=== PATIENT | female | born 1985 | race Caucasian/White ===

== ENCOUNTER → 2016-07-30 | Outpatient (CLI) | payer OTHER ==
[~2016-07-30] MED LIST: ALBU0.5N2 NEB; AMT50 PO; CGN1 PO; CHLO100T8 PO; CIPR1TAB11 PO; CLON1TAB3 PO; CYM/30 PO; DICY20TA35 PO; FLUO20CA35 PO; GLC/500 PO; HYDR25CA PO; METFORMIN PO; METH500T37 PO; NAPR375T3 PO; OMEP40CA PO; ONE A DAY WOMENS PO; PPTBS PO; QUET1TAB34 PO; QUET1TAB37 PO; QUET300T2 PO; TRAZ100T29 PO
[2016-07-30 17:30] LABS: BASO % 0.3 %; BASO ABS # 0.02 K/uL (0-0.2); COMPLETE YES; EOS % 1.2 %; HEMATOCRIT 39.6 % (37-47); IG% 0.2 %; LYMPH ABS # 2.33 K/uL (1.2-3.4); MEAN CELL VOLUME 89.8 fL (80-100); MEAN CORPUSCULAR HEMOGLOBIN 31.3 pg (25-34); MEAN CORPUSCULAR HGB CONC 34.8 g/dl (32-36); MEAN PLATELET VOLUME 9.9 fL (7.4-10.4); MONO % 2.9 %; NEUT % 55.4 %; PLATELET COUNT 202 K/uL (130-400); RED BLOOD COUNT 4.41 M/uL (4.2-5.4); WHITE BLOOD COUNT 5.82 K/uL (4.8-10.8)
[2016-07-30 17:53] LABS: AST/SGOT 13 U/L (15-37); BLOOD UREA NITROGEN 11 mg/dl (7-18); BUN/CREATININE RATIO 14.3 (10-20); CALCIUM 8.3 mg/dl (8.5-10.1); CARBON DIOXIDE 18 mmol/L (21-32); CHLORIDE 112 mmol/L (98-107); CHOLESTEROL 219 mg/dl (0-200); CREATININE 0.75 mg/dl (0.60-1.20); GLUCOSE 115 mg/dl (70-99); POTASSIUM 3.6 mmol/L (3.5-5.1); SODIUM 141 mmol/L (136-145); TRIGLYCERIDES 224 mg/dl (0-150); VERY LOW DENSITY LIPOPROT CALC 45 mg/dl
[2016-07-30 18:01] LABS: ALB/GLOB RATIO 1.1 (0.9-2); ALKALINE PHOSPHATASE 65 U/L (45-117); ALT/SGPT 26 U/L (12-78); CHOLESTEROL/HDL RATIO 5.6; HDL CHOLESTEROL 39 mg/dl; LDL CHOLESTEROL CALCULATED 135 mg/dl; RHEUMATOID FACTOR < 10.0 U/mL (0-15); THYROID STIMULATING HORMONE 0.865 uIu/ml (0.300-4.500)
[2016-07-30 19:44] LABS: LYME DISEASE AB IGG NEG (NEG); LYME DISEASE AB IGM NEG (NEG)
[2016-07-31 06:10] LABS: ESTIMATED AVERAGE GLUCOSE 105 mg/dl; HA1C FLAG Normal (Normal)
[2016-08-03 13:16] LABS: ANA TITER 1:40 TITER (<1:40)
== END | disposition home or self-care (01) ==
LOC: C.LABBFT 16:52
PROVIDERS: ATTEND Internal Medicine
DX: M25.50 Pain in unspecified joint (principal)

== ENCOUNTER → 2016-09-20 | Outpatient (CLI) | payer OTHER ==
[2016-09-25 05:07] LABS: ANTI-CENTROMERE AB <1.0 NEG AI (<1.0 NEG); ANTI-SS-A <1.0 NEG AI (<1.0 NEG); ANTI-SS-B <1.0 NEG AI (<1.0 NEG); CYCLIC CITRULLINATED PEPT IGG <16 UNITS (<20); DNA ds CRITHIDIA NEGATIVE (NEGATIVE); MICROSOMAL AB <1 IU/ML (<9); MYELOPEROXIDASE AB <1.0 AI (<1.0); Sm Antibody <1.0 NEG AI (<1.0 NEG)
[2016-09-27 13:47] LABS: ANA TITER 1:40 TITER (<1:40)
== END | disposition home or self-care (01) ==
LOC: C.LABBFT 09:25
PROVIDERS: ATTEND Internal Medicine Rheumatology
DX: R76.8 Other specified abnormal immunological findings in serum (principal); R20.0 Anesthesia of skin; I73.00 Raynaud's syndrome without gangrene

== ENCOUNTER → 2017-01-12 | Outpatient (CLI) | payer OTHER ==
[2017-01-12 17:36] LABS: BASO % 0.3 %; BASO ABS # 0.02 K/uL (0-0.2); COMPLETE YES; IG% 0.2 %; LYMPH % 43.4 %; LYMPH ABS # 2.73 K/uL (1.2-3.4); MEAN CELL VOLUME 89.4 fL (80-100); MEAN CORPUSCULAR HEMOGLOBIN 31.5 pg (25-34); MEAN CORPUSCULAR HGB CONC 35.2 g/dl (32-36); MEAN PLATELET VOLUME 10.1 fL (7.4-10.4); MONO % 3.2 %; NEUT % 51.9 %; PLATELET COUNT 206 K/uL (130-400); WHITE BLOOD COUNT 6.29 K/uL (4.8-10.8)
[2017-01-12 18:26] LABS: LYME DISEASE AB IGG NEG (NEG); LYME DISEASE AB IGM NEG (NEG)
== END | disposition home or self-care (01) ==
LOC: C.LABBFT 11:12
PROVIDERS: ATTEND Family Medicine
DX: M25.519 Pain in unspecified shoulder (principal)

== ENCOUNTER 2018-02-04 11:42 | Emergency (ER) | payer OTHER ==
[~2018-02-04] VITALS: Ht 157.5 cm; Wt 84.1 kg
[~2018-02-04 11:42] MED LIST changes: -ALBU0.5N2 NEB; -AMT50 PO; +BACL10TA PO; +BUPR-79 PO; +BUPR100T8 PO; -CGN1 PO; -CHLO100T8 PO; -CIPR1TAB11 PO; -CLON1TAB3 PO; -CYM/30 PO; -DICY20TA35 PO; +DULO60CA44 PO; -FLUO20CA35 PO; -GLC/500 PO; -HYDR25CA PO; -METFORMIN PO; -METH500T37 PO; -NAPR375T3 PO; -OMEP40CA PO; -ONE A DAY WOMENS PO; -PPTBS PO; +PRLSR20 PO; -QUET1TAB34 PO; -QUET1TAB37 PO; -QUET300T2 PO; +TOPI200T14 PO; -TRAZ100T29 PO; +VNTHFA/IN INH
[2018-02-04 11:44] VITALS: BP 149/98; TEMP 36.7; Ht 157.5 cm; Wt 84.1 kg
[2018-02-04] MEDS ORDERED: IBUPROFEN 600 MG TAB PO STA (11:52)
--- NOTE | 2018-02-04 13:01 | DIAGNOSTIC IMAGING REPORT ---
RIGHT ANKLE 3 VIEWS CLINICAL HISTORY: Right ankle injury. FINDINGS: 3 views of the right ankle are compared to study dated 04/15/2015. The skeletal structures are well mineralized. No fracture is seen. The ankle mortise is intact. There is a large plantar calcaneal enthesophyte. An os trigonum is incidentally noted. No joint effusion is identified. Mild soft tissue swelling is observed. IMPRESSION: 1. Mild soft tissue swelling with no radiographic evidence of right ankle fracture. 2. Large plantar heel spur. Electronically signed by: Olaf Vogel M.D. 02/04/2018 1:00 PM Dictated Date/Time: 02/04/2018 12:59 PM
--- NOTE | 2018-02-04 13:02 | EMERGENCY ROOM VISIT NOTE ---
ED Visit Note First contact with patient: 11:45 CHIEF COMPLAINT: Right ankle and foot injury HISTORY OF PRESENT ILLNESS: This 32-year-old female patient sustained an injury to the right ankle and foot with a twisting, inversion motion this morning when she tripped over her puppy going down the steps.. Complains of swelling and pain. The patient is able to bear weight on the foot but with pain. Constant pain, moderate to severe, worse with movement, weight bearing, and the dependent position. No knee pain. REVIEW OF SYSTEMS: 10 system review was performed and was negative unless stated otherwise history of present illness. PMH: Chronic problem list was reviewed and there are no additional changes. SOCIAL HISTORY: Patient denies tobacco use but admits to occasional alcohol use. PHYSICAL EXAM: Vital Signs: Were reviewed reviewed Nurse's notes. GENERAL: 32- year-old white female appears in no acute distress. MENTAL STATUS: Alert, oriented, and cooperative. RIGHT ANKLE: The ankle is swollen and tender over the lateral aspect but the skin is intact and there is no ligamentous instability. There is no deformity. RIGHT FOOT: No gross bony deformity noted. The patient has tenderness palpation over the metatarsal region on the dorsal aspect. The foot and toes are warm and well-perfused. Sensation to pain and light touch is intact. The patient is able to move her toes without difficulty. EMERGENCY DEPARTMENT COURSE: The patient was evaluated. Patient was given Motrin 600 mg p.o. for pain. X-ray of the right foot and ankle was ordered interpreted by myself without any evidence of acute fracture. This will later be interpreted by the radiologist. The patient was placed in a gel splint and given crutches. The patient was discharged home in stable condition. DIAGNOSIS: Sprained right ankle and foot DISCHARGE INSTRUCTIONS: Ice and elevation over the next 24 hours. Ibuprofen, 600 mg every 6 hours if needed for pain. Use crutches and wear gel splint until weightbearing is tolerable. If there is no improvement in 3-5 days followup with your doctor or an orthopedic surgeon . Off work this evening. Light duty for 3 days. Problem List Medical Problems: (1) Acute neck pain Status: Resolved (2) Alcohol intoxication Status: Resolved (3) Ankle sprain Status: Resolved (4) Anxiety Status: Chronic (5) Foot sprain Status: Resolved (6) Headache Status: Resolved (7) Headache Status: Resolved (8) Injury of left hand Status: Resolved (9) Intrauterine Status: Resolved (10) Knee injury Status: Resolved (11) Right ankle sprain Status: Resolved (12) Right ankle sprain Status: Resolved (13) Suture reaction Status: Resolved (14) Upper respiratory infection Status: Resolved Surgical Problems: (1) section Status: Resolved (2) Hx of appendectomy Status: Resolved (3) Hx of cholecystectomy Status: Resolved (4) Previous section Status: Resolved (5) S/P appendectomy Status: Resolved (6) S/P cholecystectomy Status: Resolved Current/Historical Medications Scheduled Albuterol Hfa (Ventolin Hfa), 2-4 PUFFS INH Q6H Baclofen (Lioresal), 10 MG PO TID Bupropion (Wellbutrin Sr), 150 MG PO BID Duloxetine Hcl (Cymbalta), 60 MG PO DAILY Omeprazole (Prilosec), 40 MG PO DAILY Topiramate (Topamax), 200 MG PO BID Allergies Coded Allergies: Citalopram (Verified Allergy, Intermediate, HIVES, 02/04/18) Acetaminophen (Verified Allergy, Mild, ., 02/04/18) Oriental (Unverified Allergy, Unknown, THROAT SWELLS , 02/04/18) Penicillins (Verified Allergy, Unknown, 02/04/18) Vital Signs Date Time Temp Pulse Resp B/P (MAP) Pulse Ox O2 Delivery O2 Flow Rate FiO2 02/04/18 11:44 36.7 107 18 149/98 98 Room Air Medications Administered Medications (Trade) Dose Ordered Sig/Ashok Route Start Time Stop Time Status Last Admin Dose Admin Ibuprofen (Motrin Tab) 600 mg NOW STAT PO 02/04/18 11:52 02/04/18 11:54 DC 02/04/18 12:00 600 MG Departure Information Referrals David Velez M.D. (PCP) Patient Instructions My [facility]
--- NOTE | 2018-02-04 13:02 | DIAGNOSTIC IMAGING REPORT ---
RIGHT FOOT 3 VIEWS CLINICAL HISTORY: Right foot injury. FINDINGS: 3 views of the right foot are compared to study dated 02/27/2014. The skeletal structures are well mineralized. No fracture is seen. The joint spaces of the foot are well-maintained. There is a large plantar heel spur. The overlying soft tissues are normal in appearance. IMPRESSION: No acute bony abnormality is identified. Electronically signed by: Olaf Vogel M.D. 02/04/2018 1:01 PM Dictated Date/Time: 02/04/2018 1:01 PM
[2018-02-04 13:24] VITALS: PULSE 86; O2SAT 97
== END 2018-02-04 13:26 | disposition home or self-care (01) ==
LOC: C.EDB 11:43 → C.EDD 13:26
DX: S93.401A Sprain of unspecified ligament of right ankle, initial encounter (principal); S93.601A Unspecified sprain of right foot, initial encounter; W18.49XA Other slipping, tripping and stumbling without falling, initial encounter; X50.1XXA Overexertion from prolonged static or awkward postures, initial encounter; Y93.89 Activity, other specified; Z87.828 Personal history of other (healed) physical injury and trauma; Z88.0 Allergy status to penicillin; Z88.6 Allergy status to analgesic agent; Z88.8 Allergy status to other drugs, medicaments and biological substances; Z91.018 Allergy to other foods

== ENCOUNTER 2022-08-11 05:06 | Inpatient (IN) ==
--- NOTE | 2022-08-11 06:10 | Emergency Department Note ---
Impression & Plan Mood disorder, Noncompliance with medication regimen The case was signed out to Dr. Jones at change of shift ED Provider Note NAME: SHIRLEY WEST AGE: 37 SEX: F ARRIVES VIA: Walk-In INFORMANT: Patient and her ED PROVIDER(S): Aida Hernandez DO CHIEF COMPLAINT: " Emotional detachment" PLAN: Disposition: The case was signed out to Dr. Jones at change of shift Condition: Fair MEDICAL DECISION MAKING: This is a 37-year-old female patient who was brought to the emergency department by her for a possible 302. According to the patient and her , the patient has had complete loss of emotion and just does not care anymore what happens. She made some statements to her that she was going to drive into oncoming traffic. She has been off of her medications for the past 3 to 4 months. Apparently she suffers from PTSD and overall has not been doing well for the past 3 years after losing custody of her children. She was medically cleared here in the emergency department. She had no leukocytosis and was not anemic. She had normal blood sugar and no evidence of acute kidney injury. Electrolytes were normal. Salicylate and acetaminophen level were normal. Alcohol level was negative. The patient is currently awaiting evaluation by the ED psychiatric keycase assembler. Triage Nursing notes reviewed and agree with them. Additional history obtained from patient's is at the bedside Vital Signs: reviewed and remarkable for hypertension and tachycardia Differential diagnosis: Mood disorder, thought disorder, drug abuse Diagnostics interpreted by me: Laboratory studies: See below HPI: 37/F arrives for evaluation of depression. Patient was brought to the emergency department tonight for 302 evaluation according to the . He described wanting to have the patient evaluated for thoughts of self-harm. He explained that she had made statements of wanting to hurt herself by driving into oncoming traffic. Patient states that she no longer cares what happens to her. explains that she has been using marijuana to medicate. She has not been taking any medications for the past 3 to 4 months. She is willing to admit herself for patient psychiatric care. ROS: See above HPI for pertinent positives & negatives. A total of 10 systems reviewed and were otherwise negative. PAST MEDICAL HISTORY:Depression PAST SURGICAL HISTORY:See Below FAMILY HISTORY:See Below SOCIAL HISTORY:Patient works by doing [employer]. She lives with her HOME MEDICATIONS:Not currently taking any medications ALLERGIES:See list VITALS:See Below PHYSICAL EXAMINATION: HEENT: Head - normocephalic and atraumatic. Pupils are equal, round, and reactive to light. Extraocular eye muscles are intact, and sclera are anicteric. Nose - moist nasal mucosa without discharge. Mouth - moist buccal mucosa. Oropharynx is nonerythematous and there is no tonsillar exudate or edema noted. Neck: Supple; no cervical lymphadenopathy or thyromegaly Heart: Regular rate and rhythm. There is a normal S1 and S2 with no murmurs, clicks, or gallops appreciated. Lungs: Clear to auscultation bilaterally with no wheezes, rales, or rhonchi. Abdomen: Soft, completely nontender, nondistended, with good bowel sounds. There are no palpable pulsatile masses or hepatosplenomegaly. There is no guarding, rigidity, or rebound noted. Extremities: No evidence of cyanosis, clubbing, or edema. There are easily palpable peripheral pulses. Skin: warm and dry with good turgor and no rashes. Psych: The patient appears quite depressed. Patient admits to previous thoughts of self-harm but no current thoughts. She has no thoughts of wanting to hurt anyone else ED COURSE: Times/Reassessments: 525: Patient was evaluated in room A-8. A complete history and physical was performed. Laboratory studies were drawn as above. The patient was felt to be medically cleared and was willing to admit herself voluntarily for inpatient psychiatric care. The patient will be evaluated by the ED psychiatric keycase assembler. The case is being signed out to the oncoming doctor-Dr. Jones for further disposition. 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 GERD (gastroesophageal reflux disease) History of COVID-19 History of lipoma Migraine headache Multiple lipomas Obesity Positive FARIDA (antinuclear antibody) Raynauds syndrome Substance abuse in remission Surgical History History of appendectomy History of delivery History of cholecystectomy History of dilatation and curettage History of facial surgery History of hysteroscopy History of tooth extraction S/P excision of lipoma Family History Mother Hypertension Depression with anxiety Father Alcohol abuse Social History Smoking Status: Current every day smoker Tobacco Type: Cigarettes Age Started Using Tobacco: 14; packs per day: 0.5; Cigarettes Per Day: less than 5; Second Hand Exposure: No; Hx Alcohol Use: No Hx Substance Use: Yes Prescribed Medications: Marijuana Non-Prescribed Medications: Amphetamines, Marijuana and Methamphetamines Last Used Substance Other:: 1 year Substance Use Type Other:: medical card Preferred Language: [place] Communication Ability: Effective Visual Impairment: No Limitations Hearing Ability: Normal Acute Dialysis Registered Nurse Required: No Beliefs That Will Affect Care: None marital status: Current Living Situation: Spouse current occupational status: employed and unemployed current occupation: [email or web address] How many Children do You have: 4 Feels Safe at Home: Yes Childhood Exposure to Second-Hand Smoke: Yes caffeine: Yes during the past year weight has: increased > 10 lbs Dental Care, Regularly: No Physical Activity Frequency: Does not Exercise Seatbelt Use: never Sunscreen Use: No Assistive Devices: Glasses Allergies Allergies Allergy/AdvReac Type Severity Reaction Status Date / Time acetaminophen Allergy Severe Hives/throat Verified 06/15/22 15:10 swells Penicillins Allergy Severe Hives/throat Verified 06/15/22 15:10 swells adhesive tape Allergy Intermediate Rash Verified 06/15/22 15:10 citalopram Allergy Intermediate HIVES Verified 06/15/22 15:10 CITRUS FRUITS Allergy Severe ANAPHYLAXIS Uncoded 06/15/22 15:10 Home Meds Home Medications Medication Instructions Recorded Confirmed Medical Marijuana 1 inh inhalation 5XD 02/04/21 08/11/22 Previous Rx's Medication Instructions Recorded albuterol sulfate 90 mcg/actuation 2 puff inhalation QID PRN 08/05/21 aerosol inhaler shortness of breath or wheezing #18 grams rimegepant 75 mg disintegrating 75 mg PO DAILY PRN ACUTE TREATMENT 10/23/21 tablet (Nurtec ODT) OF MIGRAINE #8 tabs rizatriptan 10 mg tablet 10 mg PO .COMPLEX PRN migraine 10/23/21 headache #9 tabs atorvastatin 20 mg tablet 20 mg PO QAM #90 tabs 10/25/21 duloxetine 30 mg capsule,delayed 30 mg PO QAM #90 caps 10/25/21 release fluticasone propionate 50 2 spray intranasal DAILY PRN 10/27/21 mcg/actuation nasal Allergy Symptoms #15.8 mL spray,suspension nicotine 14 mg/24 hr daily 1 patch transdermal Q24H #14 ea 11/09/21 transdermal patch nicotine 21 mg/24 hr daily 1 patch transdermal DAILY #28 ea 11/09/21 transdermal patch (Nicoderm CQ) nicotine 7 mg/24 hr daily 1 patch transdermal Q24H #14 ea 11/09/21 transdermal patch montelukast 10 mg tablet 10 mg PO QAM #90 tabs 12/29/21 pantoprazole 40 mg tablet,delayed 40 mg PO BID #60 tabs 03/29/22 release (Protonix) promethazine 25 mg tablet 25 mg PO Q6H PRN Nausea And 03/29/22 Vomiting #30 tabs cyclobenzaprine 10 mg tablet 10 mg PO BID PRN muscle spasm #60 04/26/22 tabs duloxetine 60 mg capsule,delayed 60 mg PO QAM #90 caps 06/16/22 release gabapentin 300 mg capsule See Rx Instructions .Route 07/09/22 .COMPLEX #330 caps Results & Data (ED) Vital Signs Vital Signs - 24 hr 08/11/22 05:16 Temperature 36.5 C Temperature Source Temporal Artery Scan Pulse Rate 118 H Respiratory Rate 18 Respiratory Effort / Characteristics Non-Labored Spontaneous Respiratory Depth Normal Blood Pressure 142/91 H Blood Pressure Mean 108 Blood Pressure Position Sitting Pulse Oximetry 97 Oxygen Delivery Method Room Air Sepsis Recent Fever Within 48 Hours No Sepsis New/Unexplained Change in Mental Status No Sepsis Action Taken by Nursing No Action Required Laboratory Data 08/11/22 06:30 08/11/22 06:30 Lab Results 08/11/22 08/11/22 08/11/22 Range/Units 05:50 06:30 06:30 WBC 5.31 (4.8-10.8) K/ul RBC 4.65 (4.20-5.40) M/uL Hgb 14.2 (12.0-16.0) g/dl Hct 40.0 (37.0-47.0) % MCV 86.0 (80.0-100.0) fL MCH 30.5 (25.0-34.0) pg MCHC 35.5 (32.0-36.0) g/dL RDW Std Deviation 39.8 (36.4-46.3) fL RDW Coeff of Helen 12.9 (11.5-14.5) % Plt Count 233 (130-400) K/uL MPV 8.8 L (9.4-12.4) fL Immature Gran % (Auto) 0.4 % Neut % (Auto) 60.6 % Lymph % (Auto) 33.5 % Metcalfe % (Auto) 3.8 % Eos % (Auto) 1.1 % Baso % (Auto) 0.6 % Neut # (Auto) 3.22 (1.40-6.50) K/uL Lymph # (Auto) 1.78 (1.2-3.4) K/uL Metcalfe # (Auto) 0.20 (0.11-0.59) K/uL Eos # (Auto) 0.06 (0-0.50) K/uL Baso # (Auto) 0.03 (0-0.2) K/uL Immature Gran # (Auto) 0.02 (0.01-0.20) K/uL Sodium 137 (136-145) mmol/L Potassium 3.6 (3.5-5.1) mmol/L Chloride 105 (98-107) mmol/L Carbon Dioxide 27 (21-32) mmol/L Anion Gap 5 (3-11) BUN 10 (6-23) mg/dl Creatinine 0.87 (0.6-1.2) mg/dl Est Cr Clr Drug Dosing 95.6 ml/min Est GFR ( Amer) 97.3 ml/min Est GFR (Non-Af Amer) 83.9 ml/min BUN/Creatinine Ratio 11.5 (10-20) Glucose 107 H (70-99(Fasting)) mg/dl Calcium 9.2 (8.5-10.1) mg/dl Total Bilirubin 0.2 (0.2-1.0) mg/dl AST 16 (13-39) U/L ALT 25 (7-52) U/L Alkaline Phosphatase 77 (34-104) U/L Total Protein 6.9 (6.0-8.3) gm/dl Albumin 4.2 (3.4-5.0) gm/dl Globulin 2.7 (2.5-4.0) gm/dl Albumin/Globulin Ratio 1.6 (0.9-2) Salicylates (3.0-30) mg/dl Acetaminophen (10-30) ug/ml Ethyl Alcohol mg/dL (<10.0) mg/dl SARS-CoV-2, RNA, NAAT NEGATIVE (NEGATIVE) 08/11/22 08/11/22 Range/Units 06:30 06:30 WBC (4.8-10.8) K/ul RBC (4.20-5.40) M/uL Hgb (12.0-16.0) g/dl Hct (37.0-47.0) % MCV (80.0-100.0) fL MCH (25.0-34.0) pg MCHC (32.0-36.0) g/dL RDW Std Deviation (36.4-46.3) fL RDW Coeff of Helen (11.5-14.5) % Plt Count (130-400) K/uL MPV (9.4-12.4) fL Immature Gran % (Auto) % Neut % (Auto) % Lymph % (Auto) % Metcalfe % (Auto) % Eos % (Auto) % Baso % (Auto) % Neut # (Auto) (1.40-6.50) K/uL Lymph # (Auto) (1.2-3.4) K/uL Metcalfe # (Auto) (0.11-0.59) K/uL Eos # (Auto) (0-0.50) K/uL Baso # (Auto) (0-0.2) K/uL Immature Gran # (Auto) (0.01-0.20) K/uL Sodium (136-145) mmol/L Potassium (3.5-5.1) mmol/L Chloride (98-107) mmol/L Carbon Dioxide (21-32) mmol/L Anion Gap (3-11) BUN (6-23) mg/dl Creatinine (0.6-1.2) mg/dl Est Cr Clr Drug Dosing ml/min Est GFR ( Amer) ml/min Est GFR (Non-Af Amer) ml/min BUN/Creatinine Ratio (10-20) Glucose (70-99(Fasting)) mg/dl Calcium (8.5-10.1) mg/dl Total Bilirubin (0.2-1.0) mg/dl AST (13-39) U/L ALT (7-52) U/L Alkaline Phosphatase (34-104) U/L Total Protein (6.0-8.3) gm/dl Albumin (3.4-5.0) gm/dl Globulin (2.5-4.0) gm/dl Albumin/Globulin Ratio (0.9-2) Salicylates < 3.0 L (3.0-30) mg/dl Acetaminophen < 3 L (10-30) ug/ml Ethyl Alcohol mg/dL < 10.0 (<10.0) mg/dl SARS-CoV-2, RNA, NAAT (NEGATIVE) Discharge Plan Visit Data Chief Complaint: Mental Health Evaluation Stated Complaint: MENTAL HEALTH EVALUATION ED Provider: Aida Hernandez Discharge Problem: Mood disorder, Noncompliance with medication regimen Forms Stand Alone Forms: [facility], Suicide Prevention Resources Prescriptions Prescriptions: No Action albuterol sulfate 90 mcg/actuation HFA aerosol inhaler 2 puff INH QID PRN (Reason: shortness of breath or wheezing) Qty: 18 2RF fluticasone propionate 50 mcg/actuation spray,suspension 2 spray intranasal DAILY PRN (Reason: Allergy Symptoms) Qty: 15.8 11RF Rx Instructions: Administer into each nostril nicotine 14 mg/24 hr patch 24 hour 1 patch transdermal Q24H Qty: 14 0RF Rx Instructions: TAKE 21 MG FOR 28 DAYS, FOLLOWED BY 14 MG FFOR 14 DAYS FOLLOWED BY 7 MG FOR 14 DAYS nicotine [Nicoderm CQ] 21 mg/24 hr patch 24 hour 1 patch transdermal DAILY Qty: 28 0RF Rx Instructions: TAKE 21 MG FOR 28 DAYS, FOLLOWED BY 14 MG FFOR 14 DAYS FOLLOWED BY 7 MG FOR 14 DAYS nicotine 7 mg/24 hr patch 24 hour 1 patch transdermal Q24H Qty: 14 0RF Rx Instructions: TAKE 21 MG FOR 28 DAYS, FOLLOWED BY 14 MG FFOR 14 DAYS FOLLOWED BY 7 MG FOR 14 DAYS montelukast 10 mg tablet 10 mg PO QAM Qty: 90 3RF pantoprazole [Protonix] 40 mg tablet,delayed release (DR/EC) 40 mg PO BID Qty: 60 5RF promethazine 25 mg tablet 25 mg PO Q6H PRN (Reason: Nausea And Vomiting) Qty: 30 2RF cyclobenzaprine 10 mg tablet 10 mg PO BID PRN (Reason: muscle spasm) Qty: 60 3RF duloxetine 60 mg capsule,delayed release(DR/EC) 60 mg PO QAM Qty: 90 3RF Rx Instructions: TOTAL DOSE 90 MG--TAKES WITH 30 MG CAP. gabapentin 300 mg capsule See Rx Instructions .ROUTE .COMPLEX Qty: 330 3RF Rx Instructions: Take 600mg in the AM, 900mg with lunch, 900mg with supper and 900 at bedtime; Nurtec ODT 75 mg tablet,disintegrating 75 mg PO DAILY PRN (Reason: ACUTE TREATMENT OF MIGRAINE) Qty: 8 3RF rizatriptan 10 mg tablet 10 mg PO .COMPLEX PRN (Reason: migraine headache) Qty: 9 0RF Hold Instructions: try nurtec Rx Instructions: Take one tablet at onset of headache, may repeat dose after 2 hours prn, limi t 2 to 3 days per week. duloxetine 30 mg capsule,delayed release(DR/EC) 30 mg PO QAM Qty: 90 3RF Rx Instructions: TOTAL DOSE 90 MG--TAKES WITH 60 MG CAP. atorvastatin 20 mg tablet 20 mg PO QAM Qty: 90 3RF Medical Marijuana 1 inh inhalation 5XD Referrals Referrals: David Velez MD [Primary Care Provider] -
[2022-08-11 07:02] LABS: Basophils # (auto) 0.03 K/uL (0-0.2); Basophils % (auto) 0.6 %; Eosinophils # (auto) 0.06 K/uL (0-0.50); Eosinophils % (auto) 1.1 %; Hemoglobin 14.2 g/dl (12.0-16.0); Immature Granulocytes # (auto) 0.02 K/uL (0.01-0.20); Immature Granulocytes % (auto) 0.4 %; Lymphocytes # (auto) 1.78 K/uL (1.2-3.4); Lymphocytes % (auto) 33.5 %; Mean Corpuscular Hemoglobin 30.5 pg (25.0-34.0); Mean Corpuscular Hgb Conc 35.5 g/dL (32.0-36.0); Mean Platelet Volume 8.8 fL (9.4-12.4); Monocytes % (auto) 3.8 %; Neutrophils # (auto) 3.22 K/uL (1.40-6.50); Neutrophils % (auto) 60.6 %; Platelet Count 233 K/uL (130-400); RDW Coefficient of Variation 12.9 % (11.5-14.5); RDW Standard Deviation 39.8 fL (36.4-46.3); Red Blood Count 4.65 M/uL (4.20-5.40); White Blood Count 5.31 K/ul (4.8-10.8)
[2022-08-11 07:11] LABS: Acetaminophen < 3 ug/ml (10-30); Salicylate < 3.0 mg/dl (3.0-30)
[2022-08-11 07:14] LABS: Albumin Globulin Ratio 1.6 (0.9-2); Albumin Level 4.2 gm/dl (3.4-5.0); BUN Creatinine Ratio 11.5 (10-20); Bilirubin,Total 0.2 mg/dl (0.2-1.0); Calcium 9.2 mg/dl (8.5-10.1); Creatinine Clr Calc Pharmacy 95.6 ml/min; Est GFR (African American) 97.3 ml/min; Est GFR (Non-African American) 83.9 ml/min; Globulin 2.7 gm/dl (2.5-4.0); Potassium 3.6 mmol/L (3.5-5.1); Total Protein 6.9 gm/dl (6.0-8.3)
--- NOTE | 2022-08-11 07:33 | Emergency Department Note ---
ED Visit Note I did receive signout from Dr. Hernandez. Patient presents due to concern for depressed mood acute on chronic symptoms. Patient has been off all medications for the last 3 months. Voluntary 201. Patient had had thoughts about driving herself in oncoming traffic. Medically cleared. Patient was evaluated and accepted 3 S. OBS NOTE The patient was placed in observation status at 0609 for mental wellness. During the time in observation, the patient was frequently reassessed and received blood work and psychiatric evaluation. On Final reassessment the patient does meet criteria for inpatient treat and the patient will be admitted for inpatient psychiatric at this time. A total observation time of 6 hours. .
[2022-08-11 09:18] LABS: Appearance Urine Slightly Cloudy (Clear); Bilirubin Urine Negative (Negative); Blood Urine Negative (Negative); Color Urine Yellow; Glucose Urine UA Negative (Negative); Ketones Urine Negative (Negative); Leukocyte Esterase Urine Negative (Negative); Nitrite Urine Negative (Negative); Protein Urine Negative (Negative); Urobilinogen Urine Negative (Negative)
[2022-08-11 11:24] LABS: Amphetamines+Metham, Urine Pos (Neg); Barbiturates, Urine Neg (Neg); Benzodiazepine, Urine Neg (Neg); Cocaine, Urine Neg (Neg); MDMA (Ecstacy), Urine Neg (Neg); Methadone, Urine Neg (Neg); Opiate, Urine Neg (Neg); Phencyclidine, Urine Neg (Neg)
[2022-08-11] MEDS ORDERED: MAGNESIUM HYDROXIDE SUSP 30 ML UDC PO PRN (13:03)
[2022-08-11] MEDS ORDERED: ALUMINUM/MAGNESIUM SUSP 30 ML UDC PO PRN (13:03)
[2022-08-11] MEDS ORDERED: SODIUM CHLORIDE 0.65% NA SOLN 45 ML (OCEAN) PRN (13:03)
[2022-08-11] MEDS ORDERED: BISMUTH SUBSALICYLATE LIQD 236 ML PO PRN (13:03)
[2022-08-11] MEDS ORDERED: hydrOXYzine HCl 25 MG TAB PO PRN ×2 (13:03)
[2022-08-11] MEDS: NICOTINE 14 MG/24 HR PATCH TD SCH (19:31)
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
[2022-08-12] MEDS: NICOTINE 14 MG/24 HR PATCH TD SCH (10:00)
[2022-08-12] MEDS ORDERED: PROMETHAZINE HCL 25 MG TAB PO PRN (10:01)
[2022-08-12] MEDS ORDERED: CYCLOBENZAPRINE HCL 10 MG TAB PO PRN (10:01)
[2022-08-12] MEDS ORDERED: ALBUTEROL HFA 8 GM INHALER INH PRN (10:01)
[2022-08-12] MEDS ORDERED: FLUTICASONE PROPIONATE NA SPR 16 GM BTL PRN (10:01)
[2022-08-12] MEDS ORDERED: IBUPROFEN 800 MG TAB PO PRN (10:13)
[2022-08-12] MEDS: GABAPENTIN 300 MG CAP PO SCH ×4 (11:33→20:56)
[2022-08-12] MEDS: DULoxetine HCL 60 MG CAP PO SCH (12:07)
[2022-08-12] MEDS: MONTELUKAST SODIUM 10 MG TABLET PO SCH (12:07)
[2022-08-12] MEDS: ATORVASTATIN 20 MG TAB PO SCH (12:07)
[2022-08-12] MEDS: PANTOprazole 40 MG TAB PO SCH ×2 (12:07→20:56)
[2022-08-12] MEDS: NICOTINE POLACRILEX 2 MG GUM MT PRN (17:59)
[2022-08-12] MEDS: TROLAMINE SALICYLATE 10% CRM 255 APPLN/85 GM TUBE EXT PRN (21:04)
[2022-08-13] MEDS: GABAPENTIN 300 MG CAP PO SCH ×4 (08:31→21:39)
[2022-08-13] MEDS: MONTELUKAST SODIUM 10 MG TABLET PO SCH (08:31)
[2022-08-13] MEDS: ATORVASTATIN 20 MG TAB PO SCH (08:31)
[2022-08-13] MEDS: DULoxetine HCL 60 MG CAP PO SCH (08:31)
[2022-08-13] MEDS: PANTOprazole 40 MG TAB PO SCH ×2 (08:32→21:39)
[2022-08-13] MEDS: NICOTINE 14 MG/24 HR PATCH TD SCH (08:40)
[2022-08-13] MEDS: NICOTINE POLACRILEX 2 MG GUM MT PRN (08:45)
[2022-08-13] MEDS ORDERED: PROPRANOLOL HCL 10 MG TAB PO PRN (11:37)
--- NOTE | 2022-08-13 11:37 | Psychiatric Progress Note ---
Date of Service August 13, 2022 Impression / Recommendations Sravani Napoles is a 37 year old with a history of depression, anxiety, PTSD, ADHD, chronic pain and substance use in sustained remission who was admitted for worsening depression, anxiety and SI with plans of crashing her car in the context of medication non-adherence, relationship strain and lack of contact with her children. Diagnostically consistent with unspecified depression and anxiety with differential including MDD with anxious distress vs substance withdrawal (UDS positive for methamphetamine on initial screen though could be false positive due to recent Wellbutrin use, confirmatory testing pending) vs c annabis-induced vs secondary to chronic pain issues vs complex PTSD. She is deemed in need of psychiatric hospitalization for diagnostic clarification, safety and stabilization, medication management and development of further coping skills. MNPR due to high level of psychic distress and significant irritability, unable to tolerate roommate 08/13/22: Still with significant depression and anxiety. Discussed treatment options. She consents to starting propranolol, understands risks include exacerbation of asthma. Not interested in antipsychotic augmentation trial as HLD. Consents to increased of duloxetine. Understands this is above FDA max dose though some data that some experience increased efficacy at higher doses. (1) Suicidal ideation: (2) Depression, unspecified: (3) Anxiety disorder, unspecified: (4) Cannabis use disorder, moderate, dependence: (5) Post traumatic stress disorder (PTSD): (6) Chronic pain: (7) GERD (gastroesophageal reflux disease): Plan 08/13/22: -Increase duloxetine to 90mg qd -Add propranolol 10mg BID prn for anxiety 08/12/22: The patient was admitted to the [facility] ([facility]) on q15 min checks (behavioral with suicide precautions) for safety. The patient will participate in group, recreational, and milieu therapies and will be offered additional individual and family sessions as clinically appropriate. -Restart duloxetine 60mg daily, consider potential titration -Continue prior to admission gabapentin for neuropathic pain and off-label for anxiety Inventory Assets Strengths: willing to get treatment, resilient, coping with chronic pain Needs: safety and stabilization, medication adjustment, additional coping skills, increased outpatient services Suicide Risk Level Suicide Risk Level: High-Moderate (q15 min suicide checks) (severe depression with SI with plan prior to admission but feels safe in the hospital, able to safety contract and agrees to let nursing/staff know should they develop plan, intent or feel unable to remain safe. 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 Chief Complaint "I hate myself". Review of Systems Sleep Information Total Hours of Sleep: 7.25 Meal Information Percent Meal Consumed - Breakfast: 100 Percent Meal Consumed - Lunch: 100 Percent Meal Consumed - Dinner: 100 Nutrition Comment: pt. allowed to rest. Meal dated, labeled and refrigerated Subjective Subjective Patient was seen & assessed and interval progress reviewed with treatment team nursing and social work. Isolative all day yesterday to her room and didn't attend any groups. Ongoing pain at times. Today out of her room more and attending some groups. Ongoing very high levels of anxiety. States she took some Concerta from a friend prior to admission and wonders this is why initial screening UDS was positive also states her also felt weird after their recent dab use and she wonders if that could have been contaminated as didn't come from dispensary. Notes high self-hatred due to not having custody of her children and that when she does have chances to see them sometimes has to cancel visits due to high anxiety. Interested in other anxiety medication options and increasing duloxetine. Physical Exam Psychiatric Orientation: alert and oriented x 3 Apperance: appropriately dressed Eye Contact: + fair eye contact Motor Behavior: no abnormal motor movements Speech: normal rate/rhythm/volume of speech Affect: + depressed affect, + anxious affect and + irritable affect Mood: + depressed mood, + anxious mood and + irritable mood Thought Process: goal directed thought process Thought Content: reality based without delusions, + worthlessness and + self deprecation Suicidal Thoughts: denies suicidal intent; + reports suicidal thoughts and + reports suicidal plan (none for hospital, outside hospital to crash car) Homicidal Thoughts: denies homicidal thoughts Hallucinations: no auditory hallucinations and no visual hallucinations Cognition: recent memory grossly intact, remote memory grossly intact, attention grossly intact and language grossly intact Estimated Intelligence: consistent with education level Insight: + limited insight Judgment: + limited judgement Vital Signs (Past 24 Hours) Last Vital Signs Temp 36.7 C 08/13/22 06:36 Pulse 61 08/13/22 06:36 Resp 16 08/13/22 06:36 BP 129/84 08/13/22 06:36 Pulse Ox 97 08/11/22 13:05 O2 Del Method 08/11/22 13:05 Results & Data ([facility]) Current Inpatient Medications Current Inpatient Medications: Current Inpatient Medications Al Hydrox/Mg Hydrox/Simethicone (Aluminum/Magnesium Susp 30 Ml Udc) 30 ml PO Q4H PRN PRN Reason: GI Upset Stop: 09/10/22 13:02 Albuterol (Albuterol Hfa 8 Gm Inhaler) 2 puffs INH QID PRN PRN Reason: shortness of breath or wheezing Stop: 09/11/22 10:00 Atorvastatin Calcium (Atorvastatin 20 Mg Tab) 20 mg PO QAM [facility] Stop: 09/11/22 10:14 Last Admin: 08/13/22 08:31 Dose: 20 mg Bismuth Subsalicylate (Bismuth Subsalicylate Liqd 236 Ml) 15 ml PO PRN PRN PRN Reason: Loose Stool Stop: 09/10/22 13:02 Cyclobenzaprine HCl (Cyclobenzaprine Hcl 10 Mg Tab) 10 mg PO BID PRN PRN Reason: muscle spasm Stop: 09/11/22 10:00 Duloxetine HCl (Duloxetine Hcl 60 Mg Cap) 60 mg PO QAM [facility] Stop: 09/11/22 10:14 Last Admin: 08/13/22 08:31 Dose: 60 mg Fluticasone Propionate (Fluticasone Propionate Na Spr 16 Gm Btl) 2 sprays NA DAILY PRN PRN Reason: Allergy Symptoms Stop: 09/11/22 10:00 Gabapentin (Gabapentin 300 Mg Cap) 600 mg PO QAM [facility] Stop: 09/11/22 10:14 Last Admin: 08/13/22 08:31 Dose: 600 mg Gabapentin (Gabapentin 300 Mg Cap) 900 mg PO TID@1130,1630,2100 [facility] Stop: 09/11/22 11:29 Last Admin: 08/12/22 20:56 Dose: 900 mg Hydroxyzine HCl (Hydroxyzine Hcl 25 Mg Tab) 50 mg PO HSZ PRN PRN Reason: Insomnia Stop: 09/10/22 13:02 Hydroxyzine HCl (Hydroxyzine Hcl 25 Mg Tab) 25 mg PO Q4H PRN PRN Reason: Anxiety Stop: 09/10/22 13:02 Last Admin: 08/13/22 10:56 Dose: 25 mg Ibuprofen (Ibuprofen 800 Mg Tab) 800 mg PO QID PRN PRN Reason: pain Stop: 09/11/22 10:12 Last Admin: 08/12/22 15:44 Dose: 800 mg Magnesium Hydroxide (Magnesium Hydroxide Susp 30 Ml Udc) 30 ml PO DAILY PRN PRN Reason: Constipation Stop: 09/10/22 13:02 Miscellaneous (Remove Nicoderm Patch) 1 each N/A DAILY@0859 [facility] Stop: 09/11/22 08:58 Last Admin: 08/13/22 08:41 Dose: Not Given Montelukast Sodium (Montelukast Sodium 10 Mg Tablet) 10 mg PO QAM [facility] Stop: 09/11/22 10:14 Last Admin: 08/13/22 08:31 Dose: 10 mg Nicotine (Nicotine 14 Mg/24 Hr Patch) 14 mg TD QAM [facility] Stop: 09/10/22 18:29 Last Admin: 08/13/22 08:40 Dose: Not Given Nicotine Polacrilex (Nicotine Polacrilex 2 Mg Gum) 1 - 2 piece MT PRN PRN PRN Reason: cravings Stop: 09/11/22 13:58 Last Admin: 08/13/22 08:45 Dose: 1 piece Pantoprazole Sodium (Pantoprazole 40 Mg Tab) 40 mg PO BID [facility] Stop: 09/11/22 10:14 Last Admin: 08/13/22 08:32 Dose: 40 mg Promethazine HCl (Promethazine Hcl 25 Mg Tab) 25 mg PO Q6H PRN PRN Reason: Nausea And Vomiting Stop: 09/11/22 10:00 Sodium Chloride (Sodium Chloride 0.65% Na Soln 45 Ml ([place])) 1 - 2 sprays NA PRN PRN PRN Reason: Nasal Dryness/Congestion Stop: 09/10/22 13:02 Trolamine Salicylate (Trolamine Salicylate 10% Crm 255 Appln/85 Gm Tube) 1 appln EXT BID PRN PRN Reason: MUSCLE/JOINT PAIN Stop: 09/11/22 17:57 Last Admin: 08/12/22 21:04 Dose: 1 appln Mental Health & Subst Abuse Tx Therapist Name of Therapist: None English As A Second Language Teacher Name of English As A Second Language Teacher: None Post Discharge Appointments Primary Care Physician Name Of Family Doctor/PCP: JOANA Vernon PA-C
[2022-08-13 14:52] LABS: Amphetamine Urine, Confirm 492 ng/mL (<250); Marijuana Quant, GCMS Urine 407 ng/mL (<5); Methamphetamine, Ur Confirm 5820 ng/mL (<250)
--- NOTE | 2022-08-14 07:57 | Psychiatric Progress Note ---
Date of Service August 14, 2022 Impression / Recommendations Sravani Napoles is a 37 year old with a history of depression, anxiety, PTSD, ADHD, chronic pain and substance use in sustained remission who was admitted for worsening depression, anxiety and SI with plans of crashing her car in the context of medication non-adherence, relationship strain and lack of contact with her children. Diagnostically consistent with unspecified depression and anxiety with differential including MDD with anxious distress vs substance withdrawal (UDS positive for methamphetamine on initial screen though could be false positive due to recent Wellbutrin use, confirmatory testing pending) vs c annabis-induced vs secondary to chronic pain issues vs complex PTSD. She is deemed in need of psychiatric hospitalization for diagnostic clarification, safety and stabilization, medication management and development of further coping skills. MNPR due to high level of psychic distress and significant irritability, unable to tolerate roommate 08/13/22: Still with significant depression and anxiety. Discussed treatment options. She consents to starting propranolol, understands risks include exacerbation of asthma. Not interested in antipsychotic augmentation trial as HLD. Consents to increased of duloxetine. Understands this is above FDA max dose though some data that some experience increased efficacy at higher doses. (1) Suicidal ideation: (2) Depression, unspecified: (3) Anxiety disorder, unspecified: (4) Cannabis use disorder, moderate, dependence: (5) Post traumatic stress disorder (PTSD): (6) Chronic pain: (7) GERD (gastroesophageal reflux disease): Plan 08/13/22: -Increase duloxetine to 90mg qd -Add propranolol 10mg BID prn for anxiety 08/12/22: The patient was admitted to the [facility] ([facility] unit) on q15 min checks (behavioral with suicide precautions) for safety. The patient will participate in group, recreational, and milieu therapies and will be offered additional individual and family sessions as clinically appropriate. -Restart duloxetine 60mg daily, consider potential titration -Continue prior to admission gabapentin for neuropathic pain and off-label for anxiety Inventory Assets Strengths: willing to get treatment, resilient, coping with chronic pain Needs: safety and stabilization, medication adjustment, additional coping skills, increased outpatient services Suicide Risk Level Suicide Risk Level: High-Moderate (q15 min suicide checks) (severe depression with SI with plan prior to admission but feels safe in the hospital, able to safety contract and agrees to let nursing/staff know should they develop plan, intent or feel unable to remain safe. 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 Chief Complaint "[]". Review of Systems Sleep Information Total Hours of Sleep: 9.5 Meal Information Percent Meal Consumed - Breakfast: 100 Percent Meal Consumed - Lunch: 100 Percent Meal Consumed - Dinner: 100 Nutrition Comment: pt. allowed to rest. Meal dated, labeled and refrigerated Subjective Subjective Patient was seen & assessed and interval progress reviewed with [treatment team] [nursing and social work] Physical Exam Psychiatric Orientation: alert and oriented x 3 Apperance: appropriately dressed, appropriately groomed and + disheveled Eye Contact: good eye contact and + fair eye contact Motor Behavior: no abnormal motor movements Speech: normal rate/rhythm/volume of speech Affect: + depressed affect, + anxious affect and + irritable affect Mood: + depressed mood, + anxious mood and + irritable mood Thought Process: goal directed thought process Thought Content: reality based without delusions, + worthlessness and + self deprecation Suicidal Thoughts: denies suicidal intent; + reports suicidal thoughts and + reports suicidal plan (none for hospital, outside hospital to crash car) Homicidal Thoughts: denies homicidal thoughts Hallucinations: no auditory hallucinations and no visual hallucinations Cognition: recent memory grossly intact, remote memory grossly intact, attention grossly intact and language grossly intact Estimated Intelligence: consistent with education level Insight: + limited insight and + fair insight Judgment: + limited judgement and + fair judgement Vital Signs (Past 24 Hours) Last Vital Signs Temp 37.1 C 08/14/22 06:46 Pulse 71 08/14/22 06:46 Resp 16 08/14/22 06:46 BP 156/96 H 08/14/22 06:46 Pulse Ox 97 08/11/22 13:05 O2 Del Method 08/11/22 13:05 Results & Data ([facility]) Laboratory Results Laboratory Results - last 24 hr 08/11/22 10:25 U Amphetamines Confirm 492 H U Methamphetamin Confrm 5820 H U Marijuana THC Carboxy 407 H Drug Screen Comment SEE NOTE Current Inpatient Medications Current Inpatient Medications: Current Inpatient Medications Al Hydrox/Mg Hydrox/Simethicone (Aluminum/Magnesium Susp 30 Ml Udc) 30 ml PO Q4H PRN PRN Reason: GI Upset Stop: 09/10/22 13:02 Albuterol (Albuterol Hfa 8 Gm Inhaler) 2 puffs INH QID PRN PRN Reason: shortness of breath or wheezing Stop: 09/11/22 10:00 Atorvastatin Calcium (Atorvastatin 20 Mg Tab) 20 mg PO QAM [facility] Stop: 09/11/22 10:14 Last Admin: 08/13/22 08:31 Dose: 20 mg Bismuth Subsalicylate (Bismuth Subsalicylate Liqd 236 Ml) 15 ml PO PRN PRN PRN Reason: Loose Stool Stop: 09/10/22 13:02 Cyclobenzaprine HCl (Cyclobenzaprine Hcl 10 Mg Tab) 10 mg PO BID PRN PRN Reason: muscle spasm Stop: 09/11/22 10:00 Duloxetine HCl (Duloxetine Hcl 30 Mg Cap) 90 mg PO QAM [facility] Stop: 09/13/22 08:59 Fluticasone Propionate (Fluticasone Propionate Na Spr 16 Gm Btl) 2 sprays NA D AILY PRN PRN Reason: Allergy Symptoms Stop: 09/11/22 10:00 Gabapentin (Gabapentin 300 Mg Cap) 600 mg PO QAM [facility] Stop: 09/11/22 10:14 Last Admin: 08/13/22 08:31 Dose: 600 mg Gabapentin (Gabapentin 300 Mg Cap) 900 mg PO TID@1130,1630,2100 [facility] Stop: 09/11/22 11:29 Last Admin: 08/13/22 21:39 Dose: 900 mg Hydroxyzine HCl (Hydroxyzine Hcl 25 Mg Tab) 50 mg PO HSZ PRN PRN Reason: Insomnia Stop: 09/10/22 13:02 Hydroxyzine HCl (Hydroxyzine Hcl 25 Mg Tab) 25 mg PO Q4H PRN PRN Reason: Anxiety Stop: 09/10/22 13:02 Last Admin: 08/13/22 10:56 Dose: 25 mg Ibuprofen (Ibuprofen 800 Mg Tab) 800 mg PO QID PRN PRN Reason: pain Stop: 09/11/22 10:12 Last Admin: 08/12/22 15:44 Dose: 800 mg Magnesium Hydroxide (Magnesium Hydroxide Susp 30 Ml Udc) 30 ml PO DAILY PRN PRN Reason: Constipation Stop: 09/10/22 13:02 Miscellaneous (Remove Nicoderm Patch) 1 each N/A DAILY@0859 [facility] Stop: 09/11/22 08:58 Last Admin: 08/13/22 08:41 Dose: Not Given Montelukast Sodium (Montelukast Sodium 10 Mg Tablet) 10 mg PO QAM [facility] Stop: 09/11/22 10:14 Last Admin: 08/13/22 08:31 Dose: 10 mg Nicotine (Nicotine 14 Mg/24 Hr Patch) [address] [facility] Stop: 09/10/22 18:29 Last Admin: 08/13/22 08:40 Dose: Not Given Nicotine Polacrilex (Nicotine Polacrilex 2 Mg Gum) 1 - 2 piece MT PRN PRN PRN Reason: cravings Stop: 09/11/22 13:58 Last Admin: 08/13/22 08:45 Dose: 1 piece Pantoprazole Sodium (Pantoprazole 40 Mg Tab) 40 mg PO BID [facility] Stop: 09/11/22 10:14 Last Admin: 08/13/22 21:39 Dose: 40 mg Promethazine HCl (Promethazine Hcl 25 Mg Tab) 25 mg PO Q6H PRN PRN Reason: Nausea And Vomiting Stop: 09/11/22 10:00 Propranolol HCl (Propranolol Hcl 10 Mg Tab) 10 mg PO BID PRN PRN Reason: Anxiety Stop: 09/12/22 11:44 Sodium Chloride (Sodium Chloride 0.65% Na Soln 45 Ml ([place])) 1 - 2 sprays NA PRN PRN PRN Reason: Nasal Dryness/Congestion Stop: 09/10/22 13:02 Trolamine Salicylate (Trolamine Salicylate 10% Crm 255 Appln/85 Gm Tube) 1 appln EXT BID PRN PRN Reason: MUSCLE/JOINT PAIN Stop: 09/11/22 17:57 Last Admin: 08/12/22 21:04 Dose: 1 appln Mental Health & Subst Abuse Tx Psychiatrist Name of Psychiatrist: Lisbet Yuen Psychiatrist's Date Of Appointment With Psychiatric Provider: 08/24/22 Time of Appointment with Psychiatrist: 9:00 Psychiatric Appointment Comment: [address] [facility] [place] [address] Therapist Name of Therapist: None Track Announcer Name of Track Announcer: [employer] Phone Number for Track Announcer: [phone] Case Management Appointment Comment: A blended casework specialist will follow up with you directly. Post Discharge Appointments Primary Care Physician Name Of Family Doctor/PCP: [facility] - Dr. Thornton [facility] Date of Future Appointment with PCP: 08/20/22 Time of Appointment with PCP: 10:05 AM Provider Appointment Comment: [address] [facility] [place] [address]
[2022-08-14] MEDS ORDERED: DULoxetine HCL 30 MG CAP PO SCH (09:00)
[2022-08-14] MEDS: ATORVASTATIN 20 MG TAB PO SCH (09:23)
[2022-08-14] MEDS: GABAPENTIN 300 MG CAP PO SCH ×2 (09:23→12:07)
[2022-08-14] MEDS: PANTOprazole 40 MG TAB PO SCH (09:24)
[2022-08-14] MEDS: MONTELUKAST SODIUM 10 MG TABLET PO SCH (09:24)
[2022-08-14] MEDS: NICOTINE 14 MG/24 HR PATCH TD SCH (09:31)
[2022-08-14] MEDS: TROLAMINE SALICYLATE 10% CRM 255 APPLN/85 GM TUBE EXT PRN (10:36)
--- NOTE | 2022-08-14 12:49 | Discharge Summary ---
Date of Service August 14, 2022 History of Present Illness Yesika presents for psychiatric admission for worsening depression and SI with plan of jumping into traffic or wrecking her car in the context of multiple psychosocial stressors including chronic pain, and relationship strain. She feels that she has nothing to live for especially since she doesn't have custody of her children. She has been non-adherence with some of her medications but states she has been intermittently taking Cymbalta and Wellbutrin as well as her "stomach meds" and gabapentin. She experiences severe chronic back pain and carpal tunnel symptoms which makes it difficult to do things. Additionally reports severe hopelessness, anhedonia, increased sleep, low energy, low appetite with stomach pain and high levels of anxiety. She feels she did best from a mood standpoint when she was on "methylphenidate and ativan" but that her prescribers did not feel that was a safe regimen. Feels her anxiety improves with cannabis use but reports it still very high and constant. She also reports significant trauma and "awful PTSD" as well as ADHD with concentration difficulty. Further history is limited due to her discomfort from back pain and desire to take a shower. Reviewed what tends to help her back pain, heating pads, which she was offered. She is currently prescribed psychiatric medications of Cymbalta 60mg daily and Wellbutrin 150mg BID which she reports last taking three days ago and takes intermittently but usually at least a few times per week. Physical Exam Psychiatric Orientation: alert and oriented x 3 Apperance: appropriately dressed and appropriately groomed Eye Contact: + fair eye contact Motor Behavior: no abnormal motor movements Speech: normal rate/rhythm/volume of speech Affect: + constricted affect Mood: + anxious mood and + dysphoric mood Thought Process: goal directed thought process Thought Content: reality based without delusions, + worthlessness and + self deprecation Suicidal Thoughts: denies suicidal thoughts, denies suicidal plan and denies suicidal intent Homicidal Thoughts: denies homicidal thoughts Hallucinations: no auditory hallucinations and no visual hallucinations Cognition: recent memory grossly intact, remote memory grossly intact, attention grossly intact and language grossly intact Estimated Intelligence: consistent with education level Insight: + fair insight Judgment: + fair judgement Vital Signs (Past 24 Hours) Last Vital Signs Temp 37.1 C 08/14/22 06:46 Pulse 71 02/11/23 06:46 Resp 16 08/14/22 06:46 BP 156/96 H 08/14/22 06:46 Pulse Ox 97 08/11/22 13:05 O2 Del Method 08/11/22 13:05 A physical exam was performed [in the ER] [on the medical floor] prior to admission to the unit by Dr. Hernandez. I accept that physical as correct/medical clearance for the inpatient physical exam. Principal Diagnosis Recurrent Major Depression, Severe, without Psychotic Features Psychiatric Data See daily stay summary. In short, safety was maintained and the patient was cooperative with care. Medication changes included addition of propranolol and increase of duloxetine and they tolerated this well. A discharge planning session was held and safety plan was completed prior to discharge. Day of Discharge Assessment Today the patient voices readiness for discharge. They note improvement in mood and deny thoughts to harm self or others. Thoughts remain organized and they are improved from admission. There is no evidence of psychosis. They agree to take mediations as prescribed and keep follow-up appointments. They are stable for discharge to outpatient level of care. 08/12/22: Yesika is a 37 year old with a history of depression, anxiety, PTSD, ADHD, chronic pain and substance use in sustained remission who was admitted for worsening depression, anxiety and SI with plans of crashing her car in the context of medication non-adherence, relationship strain and lack of contact with her children. Diagnostically consistent with unspecified depression and anxiety with differential including MDD with anxious distress vs substance withdrawal (UDS positive for methamphetamine on initial screen though could be false positive due to recent Wellbutrin use, confirmatory testing pending) vs cannabis-induced vs secondary to chronic pain issues vs complex PTSD. She is deemed in need of psychiatric hospitalization for diagnostic clarification, safety and stabilization, medication management and development of further coping skills. MNPR due to high level of psychic distress and significant irritability, unable to tolerate roommate 08/13/22: Still with significant depression and anxiety. Discussed treatment options. She consents to starting propranolol, understands risks include exacerbation of asthma. Not intere Advance Directives Advance Directives Information Provided: Yes Advance Directives: No Mental Health Advance Directive: No Advance Directives on File: No Living Will: No Power of Miller Apprentice: No Advance Directives Reason:: Declines as Mental Health Visit. 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 Relationships: Yes Supportive Family: Yes Total Time Total Time Spent: Greater Than 30 Minutes Discharge Data Lab Results 08/11/22 08/11/22 08/11/22 05:50 06:30 06:30 WBC 5.31 RBC 4.65 Hgb 14.2 Hct 40.0 MCV 86.0 MCH 30.5 MCHC 35.5 RDW Std Deviation 39.8 RDW Coeff of [place] 12.9 Plt Count 233 MPV 8.8 L Immature Gran % (Auto) 0.4 Neut % (Auto) 60.6 Lymph % (Auto) 33.5 [place] % (Auto) 3.8 Eos % (Auto) 1.1 Baso % (Auto) 0.6 Neut # (Auto) 3.22 Lymph # (Auto) 1.78 [place] # (Auto) 0.20 Eos # (Auto) 0.06 Baso # (Auto) 0.03 Immature Gran # (Auto) 0.02 Sodium 137 Potassium 3.6 Chloride 105 Carbon Dioxide 27 Anion Gap 5 BUN 10 Creatinine 0.87 Est Cr Clr Drug Dosing 95.6 Est GFR ( Amer) 97.3 Est GFR (Non-Af Amer) 83.9 BUN/Creatinine Ratio 11.5 Glucose 107 H Calcium 9.2 Total Bilirubin 0.2 AST 16 ALT 25 Alkaline Phosphatase 77 Total Protein 6.9 Albumin 4.2 Globulin 2.7 Albumin/Globulin Ratio 1.6 TSH Urine Color Urine Appearance Urine pH Ur Specific [place] Urine Protein Urine Glucose (UA) Urine Ketones Urine Blood Urine Nitrite Urine Bilirubin Urine Urobilinogen Ur Leukocyte Esterase POC Ur Test Salicylates Urine Opiates Screen Ur Methadone, Qual Acetaminophen Urine Barbiturates Ur Phencyclidine (PCP) U Amphetamines Confirm U Amphetamin/Meth Scrn U Methamphetamin Confrm MDMA (Ecstasy) Screen U Benzodiazepines Scrn Ur Cocaine Metabolite U Marijuana (THC) Screen U Marijuana THC Carboxy Drug Screen Comment Ethyl Alcohol mg/dL SARS-CoV-2, RNA, NAAT NEGATIVE 08/11/22 08/11/22 08/11/22 06:30 06:30 06:30 WBC RBC Hgb Hct MCV MCH MCHC RDW Std Deviation RDW Coeff of [place] Plt Count MPV Immature Gran % (Auto) Neut % (Auto) Lymph % (Auto) [place] % (Auto) Eos % (Auto) Baso % (Auto) Neut # (Auto) Lymph # (Auto) [place] # (Auto) Eos # (Auto) Baso # (Auto) Immature Gran # (Auto) Sodium Potassium Chloride Carbon Dioxide Anion Gap BUN Creatinine Est Cr Clr Drug Dosing Est GFR ( Amer) Est GFR (Non-Af Amer) BUN/Creatinine Ratio Glucose Calcium Total Bilirubin AST ALT Alkaline Phosphatase Total Protein Albumin Globulin Albumin/Globulin Ratio TSH 1.002 Urine Color Urine Appearance Urine pH Ur Specific [place] Urine Protein Urine Glucose (UA) Urine Ketones Urine Blood Urine Nitrite Urine Bilirubin Urine Urobilinogen Ur Leukocyte Esterase POC Ur Test Salicylates < 3.0 L Urine Opiates Screen Ur Methadone, Qual Acetaminophen < 3 L Urine Barbiturates Ur Phencyclidine (PCP) U Amphetamines Confirm U Amphetamin/Meth Scrn U Methamphetamin Confrm MDMA (Ecstasy) Screen U Benzodiazepines Scrn Ur Cocaine Metabolite U Marijuana (THC) Screen U Marijuana THC Carboxy Drug Screen Comment Ethyl Alcohol mg/dL < 10.0 SARS-CoV-2, RNA, NAAT 08/11/22 08/11/22 08/11/22 09:01 09:01 09:06 WBC RBC Hgb Hct MCV MCH MCHC RDW Std Deviation RDW Coeff of [place] Plt Count MPV Immature Gran % (Auto) Neut % (Auto) Lymph % (Auto) [place] % (Auto) Eos % (Auto) Baso % (Auto) Neut # (Auto) Lymph # (Auto) [place] # (Auto) Eos # (Auto) Baso # (Auto) Immature Gran # (Auto) Sodium Potassium Chloride Carbon Dioxide Anion Gap BUN Creatinine Est Cr Clr Drug Dosing Est GFR ( Amer) Est GFR (Non-Af Amer) BUN/Creatinine Ratio Glucose Calcium Total Bilirubin AST ALT Alkaline Phosphatase Total Protein Albumin Globulin Albumin/Globulin Ratio TSH Urine Color Yellow Urine Appearance Slightly Cloudy Urine pH 7.0 Ur Specific [place] 1.020 Urine Protein Negative Urine Glucose (UA) Negative Urine Ketones Negative Urine Blood Negative Urine Nitrite Negative Urine Bilirubin Negative Urine Urobilinogen Negative Ur Leukocyte Esterase Negative POC Ur Test NEG Salicylates Urine Opiates Screen Cancelled Ur Methadone, Qual Cancelled Acetaminophen Urine Barbiturates Cancelled Ur Phencyclidine (PCP) Cancelled U Amphetamines Confirm U Amphetamin/Meth Scrn Cancelled U Methamphetamin Confrm MDMA (Ecstasy) Screen Cancelled U Benzodiazepines Scrn Cancelled Ur Cocaine Metabolite Cancelled U Marijuana (THC) Screen Cancelled U Marijuana THC Carboxy Drug Screen Comment Ethyl Alcohol mg/dL SARS-CoV-2, RNA, NAAT 08/11/22 08/11/22 10:25 10:25 WBC RBC Hgb Hct MCV MCH MCHC RDW Std Deviation RDW Coeff of [place] Plt Count MPV Immature Gran % (Auto) Neut % (Auto) Lymph % (Auto) [place] % (Auto) Eos % (Auto) Baso % (Auto) Neut # (Auto) Lymph # (Auto) [place] # (Auto) Eos # (Auto) Baso # (Auto) Immature Gran # (Auto) Sodium Potassium Chloride Carbon Dioxide Anion Gap BUN Creatinine Est Cr Clr Drug Dosing Est GFR ( Amer) Est GFR (Non-Af Amer) BUN/Creatinine Ratio Glucose Calcium Total Bilirubin AST ALT Alkaline Phosphatase Total Protein Albumin Globulin Albumin/Globulin Ratio TSH Urine Color Urine Appearance Urine pH Ur Specific [place] Urine Protein Urine Glucose (UA) Urine Ketones Urine Blood Urine Nitrite Urine Bilirubin Urine Urobilinogen Ur Leukocyte Esterase POC Ur Test Salicylates Urine Opiates Screen Neg Ur Methadone, Qual Neg Acetaminophen Urine Barbiturates Neg Ur Phencyclidine (PCP) Neg U Amphetamines Confirm 492 H U Amphetamin/Meth Scrn Pos H U Methamphetamin Confrm 5820 H MDMA (Ecstasy) Screen Neg U Benzodiazepines Scrn Neg Ur Cocaine Metabolite Neg U Marijuana (THC) Screen Pos H U Marijuana THC Carboxy 407 H Drug Screen Comment SEE NOTE Ethyl Alcohol mg/dL SARS-CoV-2, RNA, NAAT Hospital Course (1) Major depressive disorder, recurrent, severe without psychotic features: (2) Panic disorder: (3) CLAIR (generalized anxiety disorder): (4) Cannabis use disorder, moderate, dependence: (5) Post traumatic stress disorder (PTSD): (6) Chronic pain: (7) GERD (gastroesophageal reflux disease): (8) Suicidal ideation: Now resolved Mental Health & Subst Abuse Tx Psychiatrist Name of Psychiatrist: Lisbet Yuen Psychiatrist's Date Of Appointment With Psychiatric Provider: 08/24/22 Time of Appointment with Psychiatrist: 9:00 Psychiatric Appointment Comment: [address] [place] [address] Therapist Name of Therapist: None 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 Post Discharge Appointments Primary Care Physician Name Of Family Doctor/PCP: [facility] - Dr. Thornton Primary [facility] Date of Future Appointment with PCP: 08/20/22 Time of Appointment with PCP: 10:05 AM Provider Appointment Comment: [address] [place] [address] Discharge Plan Discharge Items Patient Disposition: Home - Self-Care Reason For Visit: MAJOR DEPRESSIVE DISORDER Discharge Diagnosis: Recurrent Major Depression, Severe, without Psychotic Features Condition on Discharge: Good Activity: Resume your previous activity Non-emergency contact: Primary Care Provider and Psychiatrist Call non-emergency contact if: your symptoms worsen Follow-up/Referrals: David Velez MD [Primary Care Provider] - Diet: Regular Addtl Attending Provider Instructions: SPECIAL CARE INSTRUCTIONS: 1. Follow through with your scheduled aftercare appointments. If unable to keep an appointment, please call to reschedule. 2. Take your medication only as prescribed. Medication should not be changed or stopped without the approval of your doctor. In the event of worsening symptoms or concerns about side effects, contact your doctor immediately. 3. Utilize new healthy coping skills, anger management skills, and stress management skills learned during your hospitalization. Journal feelings and process them with a support person. Identify stressors or situations that may result in relapse, deterioration or inappropriate behaviors and develop a plan to deal with those issues. 4. If your coping skills are ineffective and you are in crisis, contact your outpatient providers for direction. If unable to reach your providers, please call the [facility] CRISIS LINE AT , go to the [facility] walk-in center at [address], [address], [place], or go to the closest Emergency Room. 5. Avoid alcohol and un-prescribed drugs. 6. You have been provided with the Mental Health Advance Directives Pamphlet for your review. 7. Your condition is stable for discharge to outpatient level of care, but recovery is an ongoing process. Ifthoughts to harm yourself or others return, follow the safety plan developed during your stay. Planning for a safe return home includes securing weapons. Our treatment team recommends weaponsbe removed from the home until your outpatient provider reassesses your progress. In rare cases where the items themselvescannot be removed, guns and ammunitionshould be secured separatelyand keys stored by a reliable personoutside of the home. If you were admitted on an involuntary commitment, the police or other legal authorities may be involved in this process. AFTERCARE APPOINTMENTS: * Please call your insurance company prior to your scheduled appointment to confirm your aftercare providers are covered. Take your insurance information to your appointments. WHO TO CALL AND WHEN: Medical Emergencies: For questions or emergencies related to your hospital stay, please contact the Inpatient Behavioral Health Unit at [phone]. A industrial relations representative is on-call 24/01 for the Behavioral Health Unit for emergencies At any time you feel your situation is an emergency, you may also call 911 immediately. Pending Studies at Discharge: No Stand-Alone Forms: [facility], Smoking Cessation Medications and DC Order Prescriptions: New propranolol 10 mg Tablet 10 mg PO BID PRN (Reason: anxiety) 30 Days Qty: 60 0RF Continued albuterol sulfate 90 mcg/actuation HFA aerosol inhaler 2 puff INH QID PRN (Reason: shortness of breath or wheezing) Qty: 18 2RF fluticasone propionate 50 mcg/actuation spray,suspension 2 spray intranasal DAILY PRN (Reason: Allergy Symptoms) Qty: 15.8 11RF Rx Instructions: Administer into each nostril montelukast 10 mg tablet 10 mg PO QAM Qty: 90 3RF pantoprazole [Protonix] 40 mg tablet,delayed release (DR/EC) 40 mg PO BID Qty: 60 5RF promethazine 25 mg tablet 25 mg PO Q6H PRN (Reason: Nausea And Vomiting) Qty: 30 2RF cyclobenzaprine 10 mg tablet 10 mg PO BID PRN (Reason: muscle spasm) Qty: 60 3RF duloxetine 60 mg capsule,delayed release(DR/EC) 60 mg PO QAM Qty: 90 3RF Rx Instructions: TOTAL DOSE 90 MG--TAKES WITH 30 MG CAP. gabapentin 300 mg capsule See Rx Instructions .ROUTE .COMPLEX Qty: 330 3RF Rx Instructions: Take 600mg in the AM, 900mg with lunch, 900mg with supper and 900 at bedtime; Nurtec ODT 75 mg tablet,disintegrating 75 mg PO DAILY PRN (Reason: ACUTE TREATMENT OF MIGRAINE) Qty: 8 3RF rizatriptan 10 mg tablet 10 mg PO .COMPLEX PRN (Reason: migraine headache) Qty: 9 0RF Hold Instructions: try nurtec Rx Instructions: Take one tablet at onset of headache, may repeat dose after 2 hours prn, limit 2 to 3 days per week. duloxetine 30 mg capsule,delayed release(DR/EC) 30 mg PO QAM Qty: 90 3RF Rx Instructions: TOTAL DOSE 90 MG--TAKES WITH 60 MG CAP. atorvastatin 20 mg tablet 20 mg PO QAM Qty: 90 3RF Discharge Orders: Discharge Order (Routine); Ordered 08/14/22 Ordered By: Troy Mercer Admission Data Admit Date/Time: 08/11/22 12:31 Attending Provider: Marcelle Page Admit Provider: Marcelle Page Primary Care Provider: David Velez Coding Level of Care Code 52405 D/C day mgmt > 30 min Diagnoses Major depressive disorder, recurrent, severe without psychotic features F33.2 Panic disorder F41.0 CLAIR (generalized anxiety disorder) F41.1 Cannabis use disorder, moderate, dependence F12.20 Post traumatic stress disorder (PTSD) F43.10 Chronic pain G89.29 GERD (gastroesophageal reflux disease) K21.9 Suicidal ideation R45.851 Time Spent (min) 33
== END 2022-08-14 13:40 | disposition home or self-care (01) | DRG 885 ==
LOC: ED 05:06 → 3S 12:31